=== PATIENT | male | born 1980 | race Caucasian/White ===

== ENCOUNTER 2017-02-15 08:45 | Day surgery (SDC) | payer OTHER ==
--- NOTE | 2016-12-28 08:26 | HP ---
DATE OF SURGERY: 12/28/2016 HISTORY OF PRESENT ILLNESS: This 36 year-old gentleman has had rectal bleeding over the past two years, had some intermittent hemorrhoid issues in the past, had bright rectal blood, no current abdominal pains. PAST MEDICAL HISTORY: Hypertension. PAST SURGICAL HISTORY: Hernia surgery. Right foot surgery. Mouth surgery in the past. MEDICATIONS: Lisinopril. ALLERGIES: NKDA. FAMILY HISTORY: Negative for colon cancer and negative inflammatory bowel disease as well. SOCIAL HISTORY: He chews tobacco, denies smoking. Alcohol use ten beers a day. REVIEW OF SYSTEMS: Twelve systems reviewed per admission assessment. No chest pain or palpitations other systems negative or noncontributory as above and per preadmission questionnaire. PHYSICAL EXAMINATION: GENERAL: No acute distress. HEENT: Sclerae nonicteric. NECK: No JVD. CHEST: Clear to auscultation. CVS: Regular rate and rhythm. ABDOMEN: Soft, nontender. No peritoneal signs. EXTREMITIES: No significant edema. NEURO: Alert, moving extremities symmetrically. No gross motor deficits noted. RECTAL: Deferred timed to endoscopy exam. IMPRESSION: Rectal bleeding unclear etiology. He also had some hemorrhoid issues in the past. I feel he will benefit from colonoscopy to rule out other etiologies of bleeding as well as pending operative findings, possible internal hemorrhoid banding if indicated. Risks and benefits explained in detail but not limited to, shown the risk sheet, risk of bleeding or infection but not limited to, small risk of bowel injury or perforation possibly requiring open procedure, small risk of missed or nondiagnosis or incomplete exam possibly requiring barium enema, general risk of anesthesia or sedation, risk of bowel prep, postoperative risk of nausea, vomiting, cramping or bleeding. He understands if internal hemorrhoid banding is indicated will perform, general risk of bleeding or infection, small risk of aches or cramps, remote risk major pelvic infection which is much less likely than if excision performed as well as possibility of progression of hemorrhoid disease even with banding, possibly requiring other procedures or even excisional therapy at a later date, general risk of anesthesia or sedation but not limited to. He understands all the above but not limited to, will proceed with colonoscopy possible internal hemorrhoid banding pending operative findings as an outpatient.
--- NOTE | 2017-02-15 08:28 | HP ---
DATE OF SURGERY: 02/15/2017 HISTORY OF PRESENT ILLNESS: The patient is a 36 year-old who the past three years had some bright red rectal bleeding, question whether he had some internal hemorrhoid bleeding. No current abdominal pain. PAST MEDICAL HISTORY: Hypertension. MEDICATIONS: Lisinopril. ALLERGIES: NKDA. PAST SURGICAL HISTORY: Hernia surgery in the past. Right foot surgery. Mouth surgery in the past. FAMILY HISTORY: Negative for colon cancer or inflammatory bowel disease. SOCIAL HISTORY: Chews tobacco. Denies smoking. Alcohol use: He does drink up to ten beers a day. REVIEW OF SYSTEMS: Twelve systems reviewed per admission assessment. No chest pain or palpitations other systems negative or noncontributory as above and per preadmission questionnaire. PHYSICAL EXAMINATION: GENERAL: No acute distress. HEENT: Sclerae nonicteric. NECK: No JVD. CHEST: Equal excursion, nonlabored breathing. CVS: Regular rate and rhythm. ABDOMEN: Soft. No peritoneal signs. EXTREMITIES: No significant edema. NEURO: Alert, moving extremities symmetrically. No gross motor deficits noted. RECTAL: Deferred timed to endoscopy exam. IMPRESSION: Rectal bleeding. I feel the patient will benefit from colonoscopy. He also inquired about possible internal hemorrhoid banding if indicated. Risks and benefits explained in detail and shown the risk sheet and explained the procedure in detail but not limited to bleeding or infection, small risk of bowel injury or perforation possibly requiring open procedure, small risk of missed or nondiagnosis or incomplete exam possibly requiring barium enema, other studies or procedures, general risk of internal hemorrhoid prominence warranting banding, general risk of bleeding, infection, risk of progression of hemorrhoid disease possibly requiring other procedures down the road, risk of sphincter spasm, irritability or dysfunction but not limited to, general risk of anesthesia or sedation, risk of bowel prep, postoperative risk of nausea, cramping but not limited to, possibility of inability to diagnose the etiology of his rectal bleeding. He understands and agrees to the planned procedure and will proceed with outpatient colonoscopy and possible internal hemorrhoid banding.
[~2017-02-15 08:45] MED LIST: Lactated Ringers 1,000 ML IV ONE
[2017-02-15] MEDS ORDERED: Lactated Ringers 1,000 ML IV SCH (09:30)
[2017-02-15 09:55] VITALS: O2SAT 98
[2017-02-15] MEDS ORDERED: Versed 2 MG/2 ML Injection IV ONE (11:00)
[2017-02-15] MEDS ORDERED: Ketamine HCl 50 MG/ML IV ONE (11:00)
[2017-02-15] MEDS ORDERED: DIPRIVAN 200 MG/20 ML IV ONE (11:00)
[2017-02-15] MEDS ORDERED: TYLENOL EXTRA STRENGTH 500 MG PO PRN (13:35)
[2017-02-15 14:25] VITALS: BP 141/82; PULSE 90
--- NOTE | 2017-02-15 15:23 | OP ---
SURGERY DATE/TIME: 02/15/2017 1235 PREOPERATIVE DIAGNOSIS: Rectal bleeding. POSTOPERATIVE DIAGNOSES: 1) Poor bowel prep limiting the exam. 2) Grade 2/3 internal and external hemorrhoids. 3) Plus/minus very superficial fissure. PROCEDURES: 1) Colonoscopy to terminal ileum. 2) Retrograde ileoscopy. 3) Internal hemorrhoid banding x4 columns. SURGEON: Dr. Desean Martinez. ANESTHESIA: MAC. ESTIMATED BLOOD LOSS: Minimal. INDICATIONS: As noted above. Risks and benefits explained in detail but not limited to and consent obtained. DESCRIPTION OF PROCEDURE AND FINDINGS: The patient is taken to the operating room and answered their questions. After official time out and no disagreement with planned procedure, MAC anesthesia introduced. Digital rectal exam did not reveal any rectal masses. He did have some internal and external hemorrhoids. There was question whether he had plus/minus very superficial fissure. He had not been complaining of pain there. Video colonoscope inserted and passed up the tortuous sigmoid, descending and transverse colon around to the ascending colon to the cecum. Appendiceal orifice and bowel were visualized. Retrograde ileoscopy was able to be performed up a couple feet at the terminal ileum which was grossly unremarkable. On withdrawal of the scope, there were no signs of any large polyps, masses or obstructing lesions. The patient did have poor prep with several areas of liquidy semisolid and solid stool limiting the exam for small lesions this was suction irrigated as well as possible but did limit the exam. The scope is slowly and carefully withdrawn. He has no signs of any obvious inflammatory lesions. No signs of any large polyps, masses or obstructing lesions. Again the prep did limit the exam for small lesions. The scope pulled back in the rectum. He had the internal and external hemorrhoids. The scope was withdrawn. At this point while he remained under MAC anesthesia with lubricated half-villeda retractor was then used as he remained under MAC anesthetized and brighter light there was evidence that the patient had grade 2/3 internal and external hemorrhoids. It was felt that he would benefit from internal hemorrhoid banding. Starting first with the left lateral just slightly posterior fashioned loose tissue with the top edge of the hemorrhoid and the road design draftsperson was easily fired with a nice tuft of tissue. There was additional more prominent component more left anterior. It was felt this also warranted banding grasping the top edge of the hemorrhoid loose tissue hopefully acquiring the feeding arteriole. Band was carefully fired. A good tuft of tissue was noted. This again was then repeated in the right posterior and then right anterior with a tuft of tissue, loose internal hemorrhoid tissue with top edge of the internal hemorrhoid suction band easily fired with a good tuft of tissue in each band. Adequate hemostasis was noted. The patient may just have a very slight superficial fissure versus variation of hemorrhoid. Otherwise the patient tolerated the procedure well. There were no immediate complications. Findings discussed with the family out in the waiting area. He will remain on high fiber diet, Metamucil or FiberCon-type products to titrate soft bulky bowel movements or sitz bath PRN otherwise. He was transferred to the recovery room outpatient area. He tolerated the procedure well. Findings discussed with the family out in the waiting area. I will see him back in the office next week.
== END 2017-02-15 14:00 | disposition home or self-care (01) ==
LOC: SDC 08:45
PROVIDERS: ATTEND Surgery
PROC: 0DJD8ZZ Inspection of Lower Intestinal Tract, Via Natural or Artificial Opening Endoscopic (ICD-10-PCS; principal; 2017-02-15)
PROC: 06LY4CC Occlusion of Hemorrhoidal Plexus with Extraluminal Device, Percutaneous Endoscopic Approach (ICD-10-PCS; 2017-02-15)
DX: K62.5 Hemorrhage of anus and rectum (principal); K64.4 Residual hemorrhoidal skin tags; K64.8 Other hemorrhoids; K60.2 Anal fissure, unspecified; I10 Essential (primary) hypertension
CPT/HCPCS: 00810; 45398; J2250; J2704; A9270-GY

== ENCOUNTER 2022-10-04 17:17 | Emergency (ER) | payer OTHER ==
[2022-10-04 17:50] VITALS: BP 141/90; PULSE 112; O2SAT 95
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
== END 2022-10-04 19:23 | disposition home or self-care (01) ==
LOC: ED 17:17
DX: S02.2XXA Fracture of nasal bones, initial encounter for closed fracture (principal); S00.12XA Contusion of left eyelid and periocular area, initial encounter; S00.431A Contusion of right ear, initial encounter; S00.83XA Contusion of other part of head, initial encounter; S20.211A Contusion of right front wall of thorax, initial encounter; Y04.0XXA Assault by unarmed brawl or fight, initial encounter; E11.9 Type 2 diabetes mellitus without complications; I10 Essential (primary) hypertension; Z79.85 Long-term (current) use of injectable non-insulin antidiabetic drugs; Z79.899 Other long term (current) drug therapy; Z28.310 Unvaccinated for COVID-19
CPT/HCPCS: 70486; 71045; 73120; 99283; 99291